=== PATIENT | male | born 1940 | race African-American/Black ===

== ENCOUNTER → 2020-02-01 | Emergency (ER) | payer OTHER ==
[~2020-02-01] VITALS: Ht 177.8 cm; Wt 75.7 kg
[~2020-02-01] MED LIST: SODIUM CHLORIDE 0.9% 500 ML IVB ONE
[2020-02-01 15:25] LABS: Potassium 3.7 mmol/L (3.5-5.1)
[2020-02-01 15:33] LABS: Total Protein 7.2 g/dL (6.4-8.2)
[2020-02-01 15:36] LABS: BUN/Creatinine Ratio 16.9
[2020-02-01 16:02] LABS: Basophils # (auto) 0 10 ^3/uL (0-0.2); Basophils % (auto) 0.4 % (0.0-2.0); Eosinophils # (auto) 0 10 ^3/uL (0-0.8); Eosinophils % (auto) 0.1 % (0.0-7.0); Hematocrit 38.7 % (41.0-53.0); Hemoglobin 12.9 g/dL (13.5-17.5); Lymphocytes # (auto) 0.9 10 ^3/uL (0.4-5.4); Lymphocytes % (auto) 14.2 % (10.0-50.0); Mean Corpuscular Hemoglobin 30.8 pg (28.0-32.0); Mean Corpuscular Hgb Conc. 33.4 g/dL (32.0-36.0); Mean Corpuscular Volume 92.3 fL (80.0-100.0); Monocytes # (auto) 0.7 10 ^3/uL (0-1.3); Monocytes % (auto) 11.8 % (0.0-12.0); Neutrophils # (auto) 4.5 10 ^3/uL (1.6-8.6); Neutrophils % (auto) 73.5 % (37.0-80.0); Nucleated Red Blood Cells % 0.2 %; Platelet Count (auto) 71 10^3/uL (140-450); Red Blood Cells 4.19 10^6/uL (4.5-5.90); Red Cell Distribution Width 17.9 % (11.8-14.3); White Blood Cell 6.1 10^3/uL (4.4-10.8)
[2020-02-01 17:30] LABS: Urine Bacteria FEW /hpf (None Seen); Urine Blood 2+ /uL (Negative); Urine Specific Gravity 1.012 (1.001-1.035); Urine WBC 139 /hpf (0 - 3)
[2020-02-01 17:41] LABS: Amphetamine Screen, Urine NEGATIVE (NEGATIVE); Barbiturate Scree,Urine NEGATIVE (NEGATIVE); Benzodiazephine Screen, Urine NEGATIVE (NEGATIVE); Cannabinoid Screen, Urine NEGATIVE (NEGATIVE); Cocaine Screen, Urine NEGATIVE (NEGATIVE); Opiate Scree,Urine NEGATIVE (NEGATIVE); Phencyclidine Screen, Urine NEGATIVE (NEGATIVE)
[2020-02-01 19:59] VITALS: BP 121/68
== END | disposition home or self-care (01) ==
LOC: EDBD 13:32 → ER 13:32
DX: R41.82 Altered mental status, unspecified (principal); E83.52 Hypercalcemia; N39.0 Urinary tract infection, site not specified; E11.9 Type 2 diabetes mellitus without complications; I10 Essential (primary) hypertension
CPT/HCPCS: 36415; 70450; 71045; 80053; 80307; 81001; 83605; 84484; 85025; 87040; 93005; 96360; 99285; J7040

== ENCOUNTER 2020-09-22 10:23 | Inpatient (IN) | payer OTHER ==
[~2020-09-22] VITALS: Ht 182.9 cm; Wt 71.3 kg
[2020-09-22] MEDS ORDERED: methylPREDNISolone SOD SUCC 125 MG/2 ML VL IV ONE (10:45)
[2020-09-22] MEDS ORDERED: MORPHINE SULF INJ 2 MG/ML SYRINGE 1ML IV ONE ×2 (11:30→12:45)
[2020-09-22] MEDS ORDERED: ONDANSETRON HCL 4 MG/2 ML VIAL IV ONE (11:30)
[2020-09-22 11:54] LABS: Mean Corpuscular Hemoglobin 31.9 pg (28.0-32.0); Mean Corpuscular Hgb Conc. 33.8 g/dL (32.0-36.0); White Blood Cell 7.1 10^3/uL (4.4-10.8)
[2020-09-22 11:57] LABS: Hematocrit 28.5 % (41.0-53.0); Hemoglobin 9.6 g/dL (13.5-17.5); Mean Corpuscular Volume 94.4 fL (80.0-100.0); Platelet Count (auto) 59 10^3/uL (140-450); Red Blood Cells 3.02 10^6/uL (4.5-5.90)
[2020-09-22] MEDS ORDERED: AZITHROMYCIN 500MG/ 250ML 250 ML IV ONE (12:00)
[2020-09-22] MEDS ORDERED: cefTRIAXone 1GM/50ML D5W 50 ML IV ONE (12:00)
[2020-09-22 12:10] LABS: Urine Bacteria FEW /hpf (None Seen); Urine Blood 1+ /uL (Negative); Urine Mucus FEW (None Seen); Urine Specific Gravity 1.026 (1.001-1.035); Urine WBC 26 /hpf (0 - 3)
[2020-09-22 12:11] LABS: Red Cell Distribution Width 22.3 % (11.8-14.3)
[2020-09-22 12:13] LABS: Basophils % (manual) 0 (0.0-2.0); Blast Cells 0; Myelocytes % 0; Promyelocytes % 0; Reactive Lymphocytes 0
[2020-09-22 12:15] LABS: Albumin 1.8 g/dL (3.4-5.0); Anion Gap 7 (5-15); Blood Urea Nitrogen 30 mg/dL (7-18); Calcium 8.5 mg/dL (8.5-10.1); Carbon Dioxide 24 mmol/L (21-32); Chloride 111 mmol/L (98-107); Glucose 107 mg/dL (74-106); Potassium 4.4 mmol/L (3.5-5.1); Sodium 142 mmol/L (136-145)
[2020-09-22 12:17] LABS: Lactic Acid w/Reflex 3.3 mmol/L (0.4-2.0)
[2020-09-22 12:26] LABS: Alanine Aminotransferase 18 U/L (16-61); Alkaline Phosphatase 150 U/L (45-117); Aspartate Aminotransferase 52 U/L (15-37); BUN/Creatinine Ratio 35.7; GFR African American 114 mL/min; GFR Non-African American 94 mL/min; Total Protein 5.1 g/dL (6.4-8.2)
[2020-09-22 12:46] LABS: Band Neutrophils % (manual) 2; Eosinophils % (manual) 3 (0-7); Lymphocytes % (manual) 7 (10.0-50.0); Metamyelocytes % 1; Monocytes % (manual) 6 (0-12)
[2020-09-22] MEDS ORDERED: MORPHINE SULF INJ 2 MG/ML SYRINGE 1ML IV PRN ×2 (14:00→15:15)
[2020-09-22] MEDS ORDERED: DEXTROSE (50%) 50ML SYRG IV PRN (14:00)
[2020-09-22] MEDS ORDERED: LABETALOL HCL 5 MG/ML ML 20ML VIAL IV PRN (14:00)
[2020-09-22] MEDS ORDERED: ACETAMINOPHEN 500 MG TAB PO PRN ×2 (14:00)
[2020-09-22] MEDS ORDERED: ALBUTEROL SULF HFA 90MCG INH 200DOSE IN SCH (14:00)
[2020-09-22] MEDS ORDERED: ONDANSETRON HCL 4 MG/2 ML VIAL IV PRN (14:00)
[2020-09-22] MEDS ORDERED: traMADol HCL 50 MG TAB PO PRN (14:00)
[2020-09-22] MEDS ORDERED: IOHEXOL 350 MG/ML 100ML IJ ONE (14:17)
[2020-09-22] MEDS ORDERED: NITROGLYCERIN 0.4 MG SL TAB SL PRN (15:15)
[2020-09-22] MEDS: MORPHINE SULF INJ 2 MG/ML SYRINGE 1ML IV PRN ×3 (16:07→22:17)
[2020-09-22] MEDS: InsuLIN REG 1unit/0.01ml Soln (100units/ml) SC SCH ×2 (17:00→22:35)
[2020-09-22] MEDS: ACCU-CHEK COMFORT CURVE STRIP VI SCH ×2 (17:00→22:16)
[2020-09-22 18:00] VITALS: BP 106/56
[2020-09-22] MEDS ORDERED: IPRATROPIUM BROM 0.5 MG/2.5ML INH SOL NEB PRN (20:30)
[2020-09-22] MEDS ORDERED: ALBUTEROL SULF 2.5 MG/0.5ML(0.5%) NEB SOLN NEB PRN (20:30)
[2020-09-22 21:58] VITALS: BP 106/56
[2020-09-22 22:00] VITALS: BP 116/59
[2020-09-22] MEDS ORDERED: BUDESONIDE (INHALATION) 180 MCG IH IN SCH (22:00)
[2020-09-22] MEDS: LORazepam 2MG/ML-1ML VIAL IV PRN (23:46)
[2020-09-23] MEDS: MORPHINE SULF INJ 2 MG/ML SYRINGE 1ML IV PRN ×6 (01:12→17:16)
[2020-09-23 05:00] VITALS: BP 111/56
[2020-09-23] MEDS: ACCU-CHEK COMFORT CURVE STRIP VI SCH (05:41)
[2020-09-23] MEDS: LORazepam 2MG/ML-1ML VIAL IV PRN ×3 (05:41→16:35)
[2020-09-23] MEDS: InsuLIN REG 1unit/0.01ml Soln (100units/ml) SC SCH (06:50)
[2020-09-23 07:13] LABS: Hematocrit 28.4 % (41.0-53.0); Hemoglobin 9.5 g/dL (13.5-17.5); Mean Corpuscular Hgb Conc. 33.5 g/dL (32.0-36.0); Mean Corpuscular Volume 95.5 fL (80.0-100.0); Platelet Count (auto) 66 10^3/uL (140-450); Red Blood Cells 2.97 10^6/uL (4.5-5.90); White Blood Cell 6.8 10^3/uL (4.4-10.8)
[2020-09-23 07:14] LABS: Red Cell Distribution Width 22.7 % (11.8-14.3)
[2020-09-23 07:16] LABS: Basophils % (manual) 0 (0.0-2.0); Blast Cells 0; Myelocytes % 0; Promyelocytes % 0; Reactive Lymphocytes 0
[2020-09-23 07:20] LABS: Albumin 1.8 g/dL (3.4-5.0); BUN/Creatinine Ratio 40.4; Bilirubin, Total 0.7 mg/dL (0.2-1.0); Total Protein 5.3 g/dL (6.4-8.2)
[2020-09-23 07:46] LABS: Potassium 5.6 mmol/L (3.5-5.1)
[2020-09-23 09:00] VITALS: BP 115/64
[2020-09-23 09:09] LABS: Band Neutrophils % (manual) 6; Eosinophils % (manual) 1 (0-7); Lymphocytes % (manual) 9 (10.0-50.0); Metamyelocytes % 1; Monocytes % (manual) 4 (0-12)
[2020-09-23] MEDS ORDERED: ASCORBIC ACID 1,000 MG TAB PO SCH (10:00)
[2020-09-23] MEDS ORDERED: ZINC SULFATE 220mg CAP or TAB PO SCH (10:00)
[2020-09-23] MEDS ORDERED: CHOLECALCIFEROL (VITD3) 2,000 UNIT CAP PO SCH (10:00)
[2020-09-23] MEDS ORDERED: DexAMETHasone SOD PHOS 10MG/1ML VIAL INJ IV SCH (10:00)
[2020-09-23] MEDS ORDERED: levoFLOXacin 500MG 100 ML IV SCH (10:00)
[2020-09-23] MEDS ORDERED: DEXTROSE (50%) 50ML SYRG IV ONE (10:30)
[2020-09-23] MEDS ORDERED: SODIUM BICARBONATE 8.4 % INJ 50ML VIAL IV ONE (10:30)
[2020-09-23] MEDS ORDERED: InsuLIN REG 1unit/0.01ml Soln (100units/ml) IV ONE (10:30)
[2020-09-23 13:00] VITALS: BP 111/64
[2020-09-23] MEDS ORDERED: FUROSEMIDE 40 MG/4 ML VIAL IV ONE (13:15)
[2020-09-23] MEDS ORDERED: ACETYLCYSTEINE 10 %(100MG/ML) SOL 4ML NEB SCH (14:00)
[2020-09-23] MEDS ORDERED: IPRATROPIUM BROM 0.5 MG/2.5ML INH SOL NEB SCH (14:00)
[2020-09-23] MEDS ORDERED: ALBUTEROL SULF 2.5 MG/0.5ML(0.5%) NEB SOLN NEB SCH (14:00)
[2020-09-23 17:00] VITALS: BP 82/38
== END 2020-09-24 01:45 | disposition expired | DRG 177 ==
LOC: ER 10:23 → EDBD 10:23 → TELE 15:16 → TELE-WESTW 18:02
PROVIDERS: ADMIT Internal Medicine; ATTEND Internal Medicine
DX: J15.6 Pneumonia due to other Gram-negative bacteria (principal); J96.00 Acute respiratory failure, unspecified whether with hypoxia or hypercapnia; J91.0 Malignant pleural effusion; C90.00 Multiple myeloma not having achieved remission; M84.522A Pathological fracture in neoplastic disease, left humerus, initial encounter for fracture; N39.0 Urinary tract infection, site not specified; Z51.5 Encounter for palliative care; Z66 Do not resuscitate; D69.6 Thrombocytopenia, unspecified; D64.9 Anemia, unspecified; E11.9 Type 2 diabetes mellitus without complications; I10 Essential (primary) hypertension; E87.5 Hyperkalemia; Z20.828 Contact with and (suspected) exposure to other viral communicable diseases; Z79.4 Long term (current) use of insulin
CPT/HCPCS: 36415; 36600; 51702; 70450; 71045; 71275; 80053; 81001; 82728; 82805; 82962; 83036; 83605; 83880; 84443; 84484; 85007; 85027; 85379; 86141; 87040; 87426; 93005; 96365; 96366; 96368; 96375; 96376; 99291; G0378; J0696; J1815; J2405